=== PATIENT | female | born 1985 | race Caucasian/White ===

== ENCOUNTER 2020-06-08 09:43 | Inpatient (IN) | payer MEDICAID ==
[~2020-06-08] VITALS: Ht 165.1 cm; Wt 60.0 kg
[2020-06-08] MEDS ORDERED: acetaminophen 325mg tablet PO ONE (11:55)
[2020-06-08] MEDS ORDERED: TETanus/Pertussis (Acell)/Diphther VAC/PF (Tdap-Adult) 0.5ml syringe IMVAC ONE (11:55)
--- NOTE | 2020-06-08 14:14 | NUR ---
attempted piv x2,will have another RN attempt iv insertion.
[2020-06-08] MEDS ORDERED: acetaminophen 325mg tablet PO PRN ×2 (14:15)
[2020-06-08] MEDS ORDERED: metoclopramide 5 mg/ml inj IV PRN (14:15)
[2020-06-08] MEDS ORDERED: HYDROmorphone inj. 0.5 MG/0.5 ML DISP.SYRIN IV PRN (14:15)
[2020-06-08] MEDS ORDERED: magnesium 4gm in 100ml NS 100 ML IV PRN (14:15)
[2020-06-08] MEDS ORDERED: LORazepam 0.5 MG tablet PO PRN (14:15)
[2020-06-08] MEDS ORDERED: magnesium Cl slow-release 64mg tablet PO PRN (14:15)
[2020-06-08] MEDS ORDERED: acetaminophen 650mg rectal suppository RC PRN (14:15)
[2020-06-08] MEDS ORDERED: ondansetron/PF 4mg/2ml inj IV PRN (14:15)
[2020-06-08] MEDS ORDERED: potassium CL 10mEq/100ml bag 100 ML IV PRN ×2 (14:15)
[2020-06-08] MEDS ORDERED: magnesium hydroxide 30ml (MOM) UD suspension PO PRN (14:15)
[2020-06-08] MEDS ORDERED: bisacodyl 10mg suppository rectal RC PRN (14:15)
[2020-06-08] MEDS ORDERED: potassium Cl 20 mEq SR tablet PO PRN ×2 (14:15)
[2020-06-08] MEDS ORDERED: magnesium 2GM in 50ml NS 50 ML IV PRN (14:15)
[2020-06-08] MEDS ORDERED: mag hydrox/Alum hydrox/simeth 30ml oral suspension PO PRN (14:15)
--- NOTE | 2020-06-08 14:16 | NUR ---
carolee picc RN.
[2020-06-08 14:18] LABS: ALANINE AMINOTRANSFERASE 32 U/L (12-78); ALBUMIN 3.3 G/DL (3.4-5.0); ALBUMIN/GLOBULIN RATIO 0.8 (1.1-1.5); ALKALINE PHOSPHATASE 96 IU/L (46-116); ANION GAP 6 (8-16); ASPARTATE AMINO TRANSFERASE 24 U/L (10-37); BILIRUBIN,TOTAL 0.1 MG/DL (0.1-1.0); BLOOD UREA NITROGEN 11 MG/DL (7-18); CALCIUM 9.3 MG/DL (8.5-10.1); CHLORIDE 106 MMOL/L (99-107); CREATININE 0.58 MG/DL (0.40-0.90); GLUCOSE 117 MG/DL (70-104); MAGNESIUM 2.1 MG/DL (1.5-2.4); POTASSIUM 3.9 MMOL/L (3.5-5.1); SODIUM 138 MMOL/L (135-145); TOTAL CARBON DIOXIDE 26.4 MMOL/L (24-32); TOTAL PROTEIN 7.5 G/DL (6.4-8.2); eGFR > 90 ML/MIN
[2020-06-08 14:19] LABS: ETHANOL < 0.010 GM/DL (0.0-0.010)
[2020-06-08] MEDS ORDERED: NO HOME MEDS (14:54)
[2020-06-08] MEDS: normal saline 1000ml 1,000 ML IV SCH (16:00)
[2020-06-08 16:17] LABS: BASOPHILS % (AUTO) 0.4 % (0-1); EOSINOPHILS % (AUTO) 0.4 % (0-6); HEMATOCRIT 25.6 % (35.0-45.0); HEMOGLOBIN 8.5 g/dl (12.0-16.0); LYMPHOCYTES # (AUTO) 1.9 X10'3 (1.1-4.8); LYMPHOCYTES % (AUTO) 23.3 % (21-51); MEAN CORPUSCULAR HEMOGLOBIN 22.1 PG (27.0-31.0); MEAN CORPUSCULAR HGB CONC 33.1 g/dL (33.0-36.5); MEAN CORPUSCULAR VOLUME 66.8 FL (78-98); MEAN PLATELET VOLUME 6.6 FL (7.4-10.4); MONOCYTES # (AUTO) 0.7 X10'3 (0-0.9); MONOCYTES % (AUTO) 8.2 % (2-12); NEUTROPHILS # (AUTO) 5.6 X10'3 (1.8-7.7); NEUTROPHILS % (AUTO) 67.7 % (42-75); PLATELET COUNT 422 X10'3 (140-440); RED BLOOD COUNT 3.83 X10'6 (4.20-5.60); RED CELL DISTRIBUTION WIDTH 16.4 % (11.5-14.5); WHITE BLOOD COUNT 8.3 X10'3 (4.5-11.0)
[2020-06-08 16:32] LABS: PARTIAL THROMBOPLASTIN TIME 28 SECONDS (22-32)
[2020-06-08] MEDS: K and/or MAG REPLACEMENT MC SCH (19:33)
[2020-06-08] MEDS: nicotine 14mg patch - 24hr TD SCH (20:29)
[2020-06-08] MEDS: oxyCODONE/APAP 5-325mg tablet PO PRN (20:30)
[2020-06-08] MEDS ORDERED: temazepam 15mg capsule PO PRN (21:00)
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
[2020-06-08 22:00] VITALS: BP 169/103
--- NOTE | 2020-06-08 22:04 | NUR ---
patient non compliant with non wt bearing. she jumped up and went to bathroom without help. Addendum: 06/08/20 at 2205 by Klaudia Goodman RN explained safety and POC with patient. she refuses to comply
[2020-06-08] MEDS: LORazepam 1 MG tablet PO PRN (23:43)
[2020-06-09] MEDS: normal saline 1000ml 1,000 ML IV SCH (00:15)
--- NOTE | 2020-06-09 01:00 | NUR ---
patient again jumping up to [facility] without waiting for assist. she pulled out her PIV
[2020-06-09 06:00] VITALS: BP 163/97
--- NOTE | 2020-06-09 06:10 | NUR ---
received report from laila jaimes
[2020-06-09 06:15] LABS: ALANINE AMINOTRANSFERASE 36 U/L (12-78); ALBUMIN 3.4 G/DL (3.4-5.0); ALBUMIN/GLOBULIN RATIO 0.8 (1.1-1.5); ALKALINE PHOSPHATASE 94 IU/L (46-116); ANION GAP 10 (8-16); ASPARTATE AMINO TRANSFERASE 22 U/L (10-37); BILIRUBIN,TOTAL 0.3 MG/DL (0.1-1.0); BLOOD UREA NITROGEN 6 MG/DL (7-18); BUN/CREATININE RATIO 11.1 (6.6-38.0); CALCIUM 8.7 MG/DL (8.5-10.1); CHLORIDE 105 MMOL/L (99-107); CREATININE 0.54 MG/DL (0.40-0.90); GLUCOSE 98 MG/DL (70-104); POTASSIUM 3.8 MMOL/L (3.5-5.1); SODIUM 138 MMOL/L (135-145); TOTAL CARBON DIOXIDE 23.5 MMOL/L (24-32); TOTAL PROTEIN 7.8 G/DL (6.4-8.2); eGFR > 90 ML/MIN
--- NOTE | 2020-06-09 06:20 | NUR ---
Problems reprioritized. Patient report given, questions answered & plan of care reviewed with ANTOINE Carrington.
[2020-06-09 06:26] LABS: BASOPHILS % (AUTO) 0.4 % (0-1); EOSINOPHILS % (AUTO) 0.3 % (0-6); HEMATOCRIT 27.6 % (35.0-45.0); HEMOGLOBIN 9.1 g/dl (12.0-16.0); LYMPHOCYTES % (AUTO) 25.9 % (21-51); MEAN CORPUSCULAR HEMOGLOBIN 22.2 PG (27.0-31.0); MEAN CORPUSCULAR HGB CONC 33.1 g/dL (33.0-36.5); MEAN CORPUSCULAR VOLUME 67.1 FL (78-98); MONOCYTES # (AUTO) 0.7 X10'3 (0-0.9); MONOCYTES % (AUTO) 9.1 % (2-12); NEUTROPHILS % (AUTO) 64.3 % (42-75); PLATELET COUNT 453 X10'3 (140-440); RED BLOOD COUNT 4.11 X10'6 (4.20-5.60); RED CELL DISTRIBUTION WIDTH 16.5 % (11.5-14.5); WHITE BLOOD COUNT 7.8 X10'3 (4.5-11.0)
[2020-06-09] MEDS: oxyCODONE/APAP 5-325mg tablet PO PRN (07:17)
[2020-06-09] MEDS: LORazepam 1 MG tablet PO PRN (07:17)
[2020-06-09] MEDS: nicotine 14mg patch - 24hr TD SCH (07:18)
[2020-06-09] MEDS: K and/or MAG REPLACEMENT MC SCH (07:25)
--- NOTE | 2020-06-09 07:29 | NUR ---
AFTER MUCH EDUCATION ABOUT HOW PT SHOULD STAY IN HOSPITAL TO GET HER FOOT OPERATED B/C OF TIB FIB FX, NOTIFIED HOSPITALIST, WHO RECOMMENDED PT GO TO GO [facility], PT SIGNED AMA PAPERWORK AND WAS ESCORTED WITH ALL BELONGINGS ACCOMPANIED BY NURSING STAFF AND SECURITY
[2020-06-09 08:48] LABS: ACANTHOCYTES FEW; ANISOCYTOSIS 1+; ELLIPTOCYTES FEW; HYPOCHROMASIA 1+; MICROCYTOSIS 2+; PLATELET ESTIMATE INCREASED; POLYCHROMASIA FEW; TEAR DROP CELLS FEW
== END 2020-06-09 07:41 | disposition left against medical advice (07) | DRG 342 ==
LOC: ER 09:44 → ED HOLD 14:12 → ORTHO 4S 18:10
PROVIDERS: ADMIT Family Medicine; ATTEND Family Medicine
PROC: 2W3SX1Z Immobilization of Right Foot using Splint (ICD-10-PCS; principal; 2020-06-08)
DX: S82.841A Displaced bimalleolar fracture of right lower leg, initial encounter for closed fracture (principal); F11.10 Opioid abuse, uncomplicated; W18.39XA Other fall on same level, initial encounter; Z53.29 Procedure and treatment not carried out because of patient's decision for other reasons; Z87.891 Personal history of nicotine dependence; Z59.0 Homelessness; Y93.89 Activity, other specified; Y92.89 Other specified places as the place of occurrence of the external cause; Y99.8 Other external cause status
CPT/HCPCS: 36415; 71045; 73590; 73610; 80053; 80320; 83735; 85008; 85025; 85610; 85730; 90715; G0378; J1170; J7030

== ENCOUNTER 2020-07-18 00:38 | Emergency (ER) | payer MEDICAID ==
[~2020-07-18] VITALS: Ht 167.6 cm; Wt 66.8 kg
[~2020-07-18 00:38] MED LIST: NO HOME MEDS
--- NOTE | 2020-07-18 06:28 | NUR ---
Pt sleeping in ED room 6, regional controller dentofacial orthopedics dentist has been called for splint application, awaiting arrival. Pt easily arousable to voice, no distress. R ankle with swelling to lateral aspect, pulse intact.
--- NOTE | 2020-07-18 07:49 | NUR ---
technical account manager at bedside
[2020-07-18 08:00] VITALS: BP 120/73
== END 2020-07-18 08:50 | disposition home or self-care (01) ==
LOC: ER 00:38
DX: S82.491 Other fracture of shaft of right fibula (principal); M79.671 Pain in right foot; R07.89 Other chest pain; R06.02 Shortness of breath; F15.90 Other stimulant use, unspecified, uncomplicated; F11.90 Opioid use, unspecified, uncomplicated; Z72.89 Other problems related to lifestyle; Z59.0 Homelessness; Z88.6 Allergy status to analgesic agent; Z88.8 Allergy status to other drugs, medicaments and biological substances; X58.XXXD Exposure to other specified factors, subsequent encounter
CPT/HCPCS: 29515; 73610; 99284

== ENCOUNTER 2020-08-24 14:22 | Emergency (ER) | payer MEDICAID ==
[~2020-08-24] VITALS: Ht 170.2 cm; Wt 66.8 kg
[2020-08-24 16:04] LABS: URINE HCG NEGATIVE (NEG)
[2020-08-24 16:05] LABS: CLARITY,URINE CLOUDY (Clear); COLOR,URINE YELLOW (Yellow); GLUCOSE, URINE NEGATIVE (Neg); KETONES,URINE NEGATIVE (Neg); LEUKOCYTE ESTERASE ,URINE MODERATE (Neg); NITRITES, URINE POSITIVE (Neg); OCCULT BLOOD,URINE SMALL (Neg); PROTEIN,URINE 100 mg/dl (Neg); UROBILINOGEN,URINE 0.2 E.U/dL (0.2-1.0)
[2020-08-24 16:09] LABS: UA COLLECTION TYPE CLN CATCH MIDSTREAM
[2020-08-24 16:10] LABS: BACTERIA,URINE 3+ /HPF (Neg); MUCUS STRANDS FEW /LPF (Neg); RBC,URINE 0-2 /HPF (0-2); SQUAMOUS EPITHELIAL CELL,UR MODERATE /LPF (FEW); WBC,URINE TNTC /HPF (0-4)
[2020-08-24 16:21] LABS: BASOPHILS # (AUTO) 0.1 X10'3 (0-0.2); BASOPHILS % (AUTO) 0.5 % (0-1); EOSINOPHILS % (AUTO) 0.2 % (0-6); LYMPHOCYTES # (AUTO) 1.7 X10'3 (1.1-4.8); LYMPHOCYTES % (AUTO) 13.8 % (21-51); MEAN CORPUSCULAR HEMOGLOBIN 19.6 PG (27.0-31.0); MEAN CORPUSCULAR HGB CONC 31.2 g/dL (33.0-36.5); MEAN CORPUSCULAR VOLUME 62.7 FL (78-98); MEAN PLATELET VOLUME 6.4 FL (7.4-10.4); MONOCYTES % (AUTO) 7.8 % (2-12); NEUTROPHILS # (AUTO) 9.7 X10'3 (1.8-7.7); NEUTROPHILS % (AUTO) 77.7 % (42-75); PLATELET COUNT 495 X10'3 (140-440); RED BLOOD COUNT 4.62 X10'6 (4.20-5.60); RED CELL DISTRIBUTION WIDTH 18.5 % (11.5-14.5); WHITE BLOOD COUNT 12.5 X10'3 (4.5-11.0)
[2020-08-24 16:35] LABS: ALANINE AMINOTRANSFERASE 35 U/L (12-78); ALBUMIN 3.6 G/DL (3.4-5.0); ALBUMIN/GLOBULIN RATIO 0.7 (1.1-1.5); ALKALINE PHOSPHATASE 167 IU/L (46-116); ANION GAP 10 (8-16); ASPARTATE AMINO TRANSFERASE 19 U/L (10-37); BILIRUBIN,TOTAL 0.3 MG/DL (0.1-1.0); BLOOD UREA NITROGEN 9 MG/DL (7-18); BUN/CREATININE RATIO 12.2 (6.6-38.0); CALCIUM 8.9 MG/DL (8.5-10.1); CHLORIDE 99 MMOL/L (99-107); CREATININE 0.74 MG/DL (0.40-0.90); MAGNESIUM 2.1 MG/DL (1.5-2.4); POTASSIUM 3.7 MMOL/L (3.5-5.1); SODIUM 135 MMOL/L (135-145); TOTAL CARBON DIOXIDE 26.5 MMOL/L (24-32); TOTAL PROTEIN 8.6 G/DL (6.4-8.2); eGFR 90 ML/MIN
[2020-08-24 16:38] LABS: GLUCOSE 120 MG/DL (70-104)
[2020-08-24] MEDS ORDERED: CefTRIAXone 1000mg IM Kit (w/lidocaine diluent) IM ONE (17:05)
[2020-08-24] MEDS ORDERED: CEPH500C5 PO (17:12)
== END 2020-08-24 17:31 | disposition home or self-care (01) ==
LOC: ER 14:23
DX: N12 Tubulo-interstitial nephritis, not specified as acute or chronic (principal); Z20.822 Contact with and (suspected) exposure to COVID-19; F17.200 Nicotine dependence, unspecified, uncomplicated; F15.10 Other stimulant abuse, uncomplicated; F11.90 Opioid use, unspecified, uncomplicated; Z59.0 Homelessness; Z87.81 Personal history of (healed) traumatic fracture; Z88.6 Allergy status to analgesic agent; Z88.8 Allergy status to other drugs, medicaments and biological substances
CPT/HCPCS: 36415; 71045; 80053; 81001; 81025; 83605; 83735; 84145; 85025; 87040; 87077; 87088; 87186; 87635; 96372; 99284; J0696

== ENCOUNTER 2020-10-16 18:42 | Emergency (ER) | payer MEDICAID ==
[~2020-10-16] VITALS: Ht 170.2 cm; Wt 75.0 kg
[~2020-10-16 18:42] MED LIST changes: +CEPH-585 PO
[2020-10-16 18:46] VITALS: BP 155/91
== END 2020-10-16 22:30 | disposition left against medical advice (07) ==
LOC: ER 18:43
DX: A64 Unspecified sexually transmitted disease (principal); Z53.21 Procedure and treatment not carried out due to patient leaving prior to being seen by health care provider

== ENCOUNTER 2020-11-19 23:23 | Emergency (ER) | payer MEDICAID | END 2020-11-20 01:22 | disposition left against medical advice (07) | LOC: ER 23:24 | DX: L02.91 Cutaneous abscess, unspecified (principal); Z53.21 Procedure and treatment not carried out due to patient leaving prior to being seen by health care provider ==

== ENCOUNTER 2020-12-21 11:52 | Emergency (ER) | payer MEDICAID ==
[~2020-12-21] VITALS: Ht 167.6 cm; Wt 74.0 kg
[2020-12-21 11:54] VITALS: BP 132/84
--- NOTE | 2020-12-21 13:40 | NUR ---
Waste Reduction Coordinator Shaunna indicated pt walked out of lobby after initial blood draw saying she wanted to smoke. Per Shaunna, she was not able to get all the ordered blood. Will continue to call for pt to complete MD orders.
[2020-12-21 14:07] LABS: HIV ANTIBODY 1&2 RAPID NON-REACTIVE (Neg)
== END 2020-12-21 16:28 | disposition left against medical advice (07) ==
LOC: ER 11:53
DX: Z77.21 Contact with and (suspected) exposure to potentially hazardous body fluids (principal); Z53.21 Procedure and treatment not carried out due to patient leaving prior to being seen by health care provider
CPT/HCPCS: 36415; 86703; 86704; 86705; 86706; 86803

== ENCOUNTER 2021-02-02 21:48 | Emergency (ER) | payer MEDICAID ==
[~2021-02-02] VITALS: Ht 170.2 cm; Wt 68.2 kg
[2021-02-02 22:20] VITALS: BP 126/98
== END 2021-02-03 23:51 | disposition left against medical advice (07) ==
LOC: ER 21:49
DX: Z00.8 Encounter for other general examination (principal); Z53.21 Procedure and treatment not carried out due to patient leaving prior to being seen by health care provider

== ENCOUNTER 2021-02-25 18:15 | Emergency (ER) | payer MEDICAID | END 2021-02-25 21:37 | disposition left against medical advice (07) | LOC: ER 18:16 | DX: T78.40XA Allergy, unspecified, initial encounter (principal); Z53.21 Procedure and treatment not carried out due to patient leaving prior to being seen by health care provider; Y92.89 Other specified places as the place of occurrence of the external cause ==

== ENCOUNTER 2021-03-07 14:11 | Emergency (ER) | payer MEDICAID ==
[~2021-03-07] VITALS: Ht 167.6 cm; Wt 68.0 kg
[2021-03-07 14:40] VITALS: BP 134/74
== END 2021-03-07 17:19 | disposition left against medical advice (07) ==
LOC: ER 14:16
DX: R30.9 Painful micturition, unspecified (principal); H92.02 Otalgia, left ear; Z53.21 Procedure and treatment not carried out due to patient leaving prior to being seen by health care provider

== ENCOUNTER 2021-05-12 02:32 | Emergency (ER) | payer MEDICAID ==
[~2021-05-12] VITALS: Ht 167.6 cm; Wt 75.0 kg
[2021-05-12 02:46] VITALS: BP 210/122
== END 2021-05-12 04:10 | disposition home or self-care (01) ==
LOC: ER 02:32
DX: T65.891A Toxic effect of other specified substances, accidental (unintentional), initial encounter (principal); H57.13 Ocular pain, bilateral; F15.90 Other stimulant use, unspecified, uncomplicated; F11.90 Opioid use, unspecified, uncomplicated; Z59.00 Homelessness unspecified; Z87.81 Personal history of (healed) traumatic fracture; Z86.19 Personal history of other infectious and parasitic diseases; Z88.8 Allergy status to other drugs, medicaments and biological substances; Z79.2 Long term (current) use of antibiotics; Y92.89 Other specified places as the place of occurrence of the external cause
CPT/HCPCS: 99281